=== PATIENT | male | born 1990 | race Two or more races ===

== ENCOUNTER 2017-04-29 10:05 | Emergency (ER) | payer MEDICAID ==
[2017-04-29 10:19] VITALS: BP 142/90; TEMP 98.5
--- NOTE | 2017-04-29 11:00 | C.PDOC ---
History Of Present Illness 27 year old male presents to the ED with complaints of itchy rash to the left arm and torso beginning thirty minutes prior to arrival. Patient states he ate cheese at 10 o' clock this morning and developed a rash 30 minutes afterwards. He notes a similar reaction to cheese in the past and rash and itchy sensation has resolved upon arrival. Patient denies shortness of breath, chest pain, or other associated symptoms. Time Seen by Provider: 04/29/17 10:50 Chief Complaint (Nursing): Allergic Reaction History Per: Patient History/Exam Limitations: no limitations Onset/Duration Of Symptoms: Mins (30 minutes ) Current Symptoms Are (Timing): Still Present Recent travel outside of the [place]: No Past Medical History Reviewed: Historical Data, Nursing Documentation, Vital Signs Vital Signs: Last Vital Signs Temp 98.5 F 04/29/17 10:15 Pulse 95 H 04/29/17 11:07 Resp 18 04/29/17 11:07 BP 142/90 04/29/17 10:15 Pulse Ox 98 04/29/17 11:07 Family History: States: Other Other Family History: Non-contributory. - Social History Hx Alcohol Use: No Hx Substance Use: No - Immunization History Hx Tetanus Toxoid Vaccination: Yes Hx Influenza Vaccination: No Hx Pneumococcal Vaccination: No Review Of Systems Except As Marked, All Systems Reviewed And Found Negative. Constitutional: Negative for: Fever Respiratory: Negative for: Shortness of Breath Physical Exam - Physical Exam Appears: Non-toxic, No Acute Distress Skin: Warm, Dry, No Rash Head: Atraumatic, Normacephalic Eye(s): bilateral: PERRL, EOMI Ear(s): Bilateral: Normal Nose: Normal, No Discharge Oral Mucosa: Moist Throat: Normal, No Erythema, No Exudate Chest: Symmetrical, No Deformity Cardiovascular: Rhythm Regular, No Murmur Respiratory: Normal Breath Sounds, No Rales, No Rhonchi, No Wheezing Neurological/Psych: Oriented x3 ED Course And Treatment O2 Sat by Pulse Oximetry: 99 (room air ) Disposition - Disposition Referrals: [facility] [Outside] Disposition: HOME/ ROUTINE Disposition Time: 11:00 Condition: GOOD Additional Instructions: Please follow up with your doctor. Return to the ER for any worsening symptoms, difficulty breathing, or for any other concerns. Prescriptions: DiphenhydrAMINE [Benadryl] 25 mg PO Q8H PRN #10 cap PRN Reason: Itching / Pruritus Instructions: Food Allergy (ED) Forms: General Discharge Instructions, [facility] ([place]) - Clinical Impression Clinical Impression: Allergic reaction - Scribe Statement The provider has reviewed the documentation as recorded by the Scribelizabeth Ramachandran All medical record entries made by the Sandroibe were at my direction and personally dictated by me. I have reviewed the chart and agree that the record accurately reflects my personal performance of the history, physical exam, medical decision making, and the department course for this patient. I have also personally directed, reviewed, and agree with the discharge instructions and disposition.
[2017-04-29 11:25] VITALS: PULSE 95; RESP 18
[2017-04-29 13:48] VITALS: O2SAT 99
== END 2017-04-29 11:07 | disposition home or self-care (01) ==
LOC: C.ER 10:05
DX: T78.1XXA Other adverse food reactions, not elsewhere classified, initial encounter (principal)